=== PATIENT | male | born 1975 | race Caucasian/White ===

== ENCOUNTER 2019-08-20 06:39 | Emergency (ER) | payer MEDICAID ==
[~2019-08-20] VITALS: Ht 177.8 cm; Wt 83.0 kg
[2019-08-20] MEDS ORDERED: ondansetron/PF 4mg/2ml inj IV ONE (07:10)
[2019-08-20] MEDS ORDERED: normal saline 1000ML IV soln IVB ONE (07:10)
[2019-08-20 07:45] LABS: BASOPHILS # (AUTO) 0.1 X10'3 (0-0.2); BASOPHILS % (AUTO) 0.7 % (0-1); EOSINOPHILS # (AUTO) 0.1 X10'3 (0-0.9); EOSINOPHILS % (AUTO) 0.7 % (0-6); HEMATOCRIT 42.5 % (42.0-52.0); HEMOGLOBIN 13.8 g/dl (14.0-17.9); LYMPHOCYTES # (AUTO) 2.2 X10'3 (1.1-4.8); LYMPHOCYTES % (AUTO) 14.5 % (21-51); MEAN CORPUSCULAR HEMOGLOBIN 28.4 PG (27.0-31.0); MEAN CORPUSCULAR HGB CONC 32.4 g/dL (33.0-36.5); MEAN CORPUSCULAR VOLUME 87.8 FL (78-98); MEAN PLATELET VOLUME 10.5 FL (7.4-10.4); MONOCYTES # (AUTO) 0.9 X10'3 (0-0.9); MONOCYTES % (AUTO) 6.2 % (2-12); NEUTROPHILS # (AUTO) 11.9 X10'3 (1.8-7.7); NEUTROPHILS % (AUTO) 77.9 % (42-75); PLATELET COUNT 224 X10'3 (140-440); RED BLOOD COUNT 4.84 X10'6 (4.70-6.10); RED CELL DISTRIBUTION WIDTH 14.4 % (11.5-14.5); WHITE BLOOD COUNT 15.3 X10'3 (4.5-11.0)
[2019-08-20 07:47] LABS: ALANINE AMINOTRANSFERASE 31 U/L (12-78); ALBUMIN 4.2 G/DL (3.4-5.0); ALBUMIN/GLOBULIN RATIO 1.2 (1.1-1.5); ALKALINE PHOSPHATASE 80 IU/L (46-116); ANION GAP 8 (8-16); ASPARTATE AMINO TRANSFERASE 20 U/L (10-37); BILIRUBIN,TOTAL 0.3 MG/DL (0.1-1.0); BLOOD UREA NITROGEN 17 MG/DL (7-18); BUN/CREATININE RATIO 19.8 (5.4-32.0); CHLORIDE 106 MMOL/L (99-107); CREATININE 0.86 MG/DL (0.60-1.10); GLUCOSE 115 MG/DL (70-104); POTASSIUM 4.1 MMOL/L (3.5-5.1); SODIUM 141 MMOL/L (135-145); TOTAL PROTEIN 7.6 G/DL (6.4-8.2); eGFR > 90 ML/MIN
[2019-08-20 08:11] VITALS: BP 118/76
[2019-08-20] MEDS ORDERED: ONDA4TAB6 PO (08:16)
== END 2019-08-20 08:47 | disposition home or self-care (01) ==
LOC: ER 06:39
DX: R11.2 Nausea with vomiting, unspecified (principal); D72.829 Elevated white blood cell count, unspecified; R42 Dizziness and giddiness; R53.1 Weakness
CPT/HCPCS: 36415; 80053; 85025; 96361; 96374; 99283; J2405; J7030

== ENCOUNTER 2019-10-27 16:42 | Emergency (ER) | payer MEDICAID, OTHER ==
[~2019-10-27] VITALS: Ht 177.8 cm; Wt 86.4 kg
[~2019-10-27 16:42] MED LIST: ONDA4TAB6 PO
--- NOTE | 2019-10-27 17:12 | NUR ---
pt is 43 yo male c/o back pain after lifting ladder off of truck at work, pt is unable to sit down, amb with very slow shuffling gait to fast track, no loss of bladder/bowel, h/o chronic back pain due to degenerative disc disease, waiting to be evaluated by provider
[2019-10-27] MEDS ORDERED: ketorolac trometh inj. 60 MG/2 ML VIAL IM ONE (17:30)
[2019-10-27] MEDS ORDERED: HYDROcodone/acetaminophen 5mg/325mg tablet PO ONE (17:30)
[2019-10-27] MEDS ORDERED: cyclobenzaprine 10mg tablet PO ONE (17:30)
[2019-10-27] MEDS ORDERED: IBUP-1984 PO (17:38)
[2019-10-27] MEDS ORDERED: CYCL-1 PO (17:38)
[2019-10-27] MEDS ORDERED: HYDR-3965 PO (17:38)
[2019-10-27 18:15] VITALS: BP 139/72
== END 2019-10-27 18:00 | disposition home or self-care (01) ==
LOC: ER 16:42
DX: M54.5 Low back pain (principal); M62.838 Other muscle spasm; Z72.89 Other problems related to lifestyle; Z79.899 Other long term (current) drug therapy
CPT/HCPCS: 96372; 99283; J1885

== ENCOUNTER 2020-05-26 17:17 | Emergency (ER) | payer OTHER ==
[~2020-05-26] VITALS: Ht 180.3 cm; Wt 86.4 kg
[~2020-05-26 17:17] MED LIST changes: +CYCL-1 PO
== END 2020-05-26 17:41 | disposition left against medical advice (07) ==
LOC: ER 17:18
DX: J11.1 Influenza due to unidentified influenza virus with other respiratory manifestations (principal); Z53.21 Procedure and treatment not carried out due to patient leaving prior to being seen by health care provider

== ENCOUNTER 2020-05-29 10:44 | Emergency (ER) | payer MEDICAID, OTHER ==
[~2020-05-29] VITALS: Ht 177.8 cm; Wt 90.0 kg
[2020-05-29 10:51] VITALS: BP 173/96
== END 2020-05-29 13:07 | disposition left against medical advice (07) ==
LOC: ER 10:45
DX: R53.83 Other fatigue (principal); Z53.21 Procedure and treatment not carried out due to patient leaving prior to being seen by health care provider

== ENCOUNTER 2020-05-31 23:12 | Emergency (ER) | payer MEDICAID ==
[~2020-05-31] VITALS: Ht 177.8 cm; Wt 79.5 kg
[2020-05-31] MEDS ORDERED: metoclopramide 5 mg/ml inj IV ONE (23:35)
[2020-05-31] MEDS ORDERED: normal saline 1000ML IV soln IVB ONE ×2 (23:35)
[2020-05-31] MEDS ORDERED: diphenhydrAMINE 50 mg/ml inj IV ONE (23:35)
[2020-05-31] MEDS ORDERED: ketorolac trometh. 30mg/ml inj. IV ONE (23:35)
[2020-06-01 00:33] LABS: BASOPHILS # (AUTO) 0.1 X10'3 (0-0.2); RED BLOOD COUNT 4.68 X10'6 (4.70-6.10)
[2020-06-01 00:34] LABS: BASOPHILS % (AUTO) 0.9 % (0-1); EOSINOPHILS % (AUTO) 0.1 % (0-6); HEMATOCRIT 39.7 % (42.0-52.0); HEMOGLOBIN 13.2 g/dl (14.0-17.9); LYMPHOCYTES % (AUTO) 25.2 % (21-51); MEAN CORPUSCULAR HEMOGLOBIN 28.2 PG (27.0-31.0); MEAN CORPUSCULAR HGB CONC 33.2 g/dL (33.0-36.5); MEAN CORPUSCULAR VOLUME 84.8 FL (78-98); MEAN PLATELET VOLUME 9.9 FL (7.4-10.4); MONOCYTES % (AUTO) 11.9 % (2-12); NEUTROPHILS % (AUTO) 61.9 % (42-75); PLATELET COUNT 196 X10'3 (140-440); RED CELL DISTRIBUTION WIDTH 14.2 % (11.5-14.5); WHITE BLOOD COUNT 8.1 X10'3 (4.5-11.0)
[2020-06-01 00:41] LABS: ALANINE AMINOTRANSFERASE 29 U/L (12-78); ALBUMIN 3.8 G/DL (3.4-5.0); ALBUMIN/GLOBULIN RATIO 0.9 (1.1-1.5); ALKALINE PHOSPHATASE 89 IU/L (46-116); ANION GAP 17 (8-16); ASPARTATE AMINO TRANSFERASE 35 U/L (10-37); BILIRUBIN,TOTAL 0.3 MG/DL (0.1-1.0); BLOOD UREA NITROGEN 13 MG/DL (7-18); BUN/CREATININE RATIO 17.8 (5.4-32.0); CALCIUM 8.9 MG/DL (8.5-10.1); CHLORIDE 100 MMOL/L (99-107); CREATININE 0.73 MG/DL (0.60-1.10); GLUCOSE 134 MG/DL (70-104); POTASSIUM 3.3 MMOL/L (3.5-5.1); SODIUM 138 MMOL/L (135-145); TOTAL CARBON DIOXIDE 20.6 MMOL/L (24-32); TOTAL PROTEIN 7.9 G/DL (6.4-8.2); eGFR > 90 ML/MIN
[2020-06-01 01:08] LABS: LARGE PLATELETS FEW; PLATELET ESTIMATE NORMAL
[2020-06-01 01:09] LABS: ANISOCYTOSIS FEW; POIKILOCYTOSIS FEW; SCHISTOCYTES FEW
[2020-06-01 01:11] LABS: BURR CELLS FEW
[2020-06-01 01:53] VITALS: BP 152/81
[2020-06-01] MEDS ORDERED: ONDA4TAB12 PO (02:04)
== END 2020-06-01 03:39 | disposition home or self-care (01) ==
LOC: ER 23:13
DX: B34.9 Viral infection, unspecified (principal); R11.2 Nausea with vomiting, unspecified; R50.9 Fever, unspecified; R51.9 Headache, unspecified; R53.1 Weakness; R53.83 Other fatigue; R05 Cough; Z72.89 Other problems related to lifestyle; Z79.899 Other long term (current) drug therapy
CPT/HCPCS: 36415; 80053; 85008; 85025; 87502; 87503; 96361; 96374; 96375; 99284; J1200; J1885; J2765; J7030

== ENCOUNTER 2023-08-02 09:51 | Outpatient (CLI) | payer BC ==
[~2023-08-02 09:51] MED LIST changes: +ONDA4TAB12 PO
== END 2023-08-02 23:59 | disposition home or self-care (01) ==
LOC: RAD 09:51
PROVIDERS: ATTEND Physician Assistant
DX: M48.07 Spinal stenosis, lumbosacral region (principal); M54.50 Low back pain, unspecified
CPT/HCPCS: 72110

== ENCOUNTER 2023-11-13 11:16 | Emergency (ER) | payer BC, OTHER ==
[~2023-11-13] VITALS: Ht 177.8 cm; Wt 80.9 kg
[~2023-11-13 11:16] MED LIST changes: +ONDA-243 PO; -ONDA4TAB12 PO
[2023-11-13] MEDS ORDERED: PRED20TA PO (11:49)
[2023-11-13] MEDS: dexamethasone sod phosphate 10mg/ml inj IM STA (11:53)
[2023-11-13] MEDS: ketorolac trometh 30MG/ML vial 30 MG/ML VIAL IM ONE (11:53)
[2023-11-13 11:56] VITALS: BP 124/68; PULSE 80; RESP 18; TEMP 97.5; O2SAT 97
== END 2023-11-13 11:58 | disposition home or self-care (01) ==
LOC: ER 11:16
DX: M25.522 Pain in left elbow (principal); F12.90 Cannabis use, unspecified, uncomplicated; Z79.899 Other long term (current) drug therapy; Z79.52 Long term (current) use of systemic steroids
CPT/HCPCS: 96372; 99284; J1100; J1885

== ENCOUNTER 2024-04-02 07:50 | Emergency (ER) | payer BC, OTHER ==
[~2024-04-02] VITALS: Ht 177.8 cm; Wt 89.0 kg
[2024-04-02 07:51] VITALS: BP 129/63; PULSE 88; RESP 18; TEMP 98.3; O2SAT 98
== END 2024-04-02 14:00 | disposition left against medical advice (07) ==
LOC: ER 07:50
DX: M25.572 Pain in left ankle and joints of left foot (principal); Z53.21 Procedure and treatment not carried out due to patient leaving prior to being seen by health care provider

== ENCOUNTER 2024-04-09 09:01 | Emergency (ER) | payer BC ==
[~2024-04-09] VITALS: Ht 177.8 cm; Wt 87.5 kg
== END 2024-04-09 10:31 | disposition left against medical advice (07) ==
LOC: ER 09:02
DX: M67.472 Ganglion, left ankle and foot (principal); F17.210 Nicotine dependence, cigarettes, uncomplicated; F12.90 Cannabis use, unspecified, uncomplicated; Y90.9 Presence of alcohol in blood, level not specified
CPT/HCPCS: 99281

== ENCOUNTER 2025-03-03 09:47 | Emergency (ER) | payer BC, OTHER ==
[~2025-03-03] VITALS: Ht 177.8 cm; Wt 85.7 kg
[2025-03-03 09:58] VITALS: TEMP 97.9
[2025-03-03] MEDS: ondansetron/PF 4mg/2ml inj IV ONE (10:09)
[2025-03-03] MEDS: morphine 4 MG/ML inj SYRINge IV ONE (10:09)
--- NOTE | 2025-03-03 10:28 | Physician Documentation ---
History of Present Illness ~ Chief Complaint: Back Pain Stated Complaint: BACK PAIN Time Seen by MD: 10:28 OK to notify your PCP?: Yes Primary Medical Doctor: [facility] Source: patient, RN/, RN notes reviewed Exam Limitations: no limitations HPI Patient is a 49-year-old male with no significant medical history who came to the ED due to back pain. Patient reports that earlier today he hurt his back at work while lifting heavy equipment, pain is described as mid back, left-sided, 7/10 in intensity, nonradiating, worsened by movement. He denies any numbing or tingling sensation in his legs or feet. He has not experienced this type of pain in the past. He also denies any burning urination, frequency or dysuria. Medication Reconciliation Allergies: Coded Allergies: No Known Allergies (Unverified , 03/03/25) Scheduled Cyclobenzaprine* (Cyclobenzaprine*), 1 TAB PO HS Lidocaine (Lidocaine Pain Relief), 1 PATCH TOP DAILY Scheduled PRN Tramadol HCl (Tramadol HCl), 1 TAB PO Q12H PRN PRN for pain Discontinued Medications Cyclobenzaprine* (Cyclobenzaprine*), 1 TAB PO TID Discontinued Reason: patient no longer taking ONDANSETRON ODT 4mg tablet (Ondansetron Odt), 1 TABLET PO Q6H PRN for nausea/vomiting Discontinued Reason: patient no longer taking Ondansetron Hcl (Zofran), 1 TAB PO Q6H Discontinued Reason: patient no longer taking Past Medical History Past Medical History: No Pertinent History Past Surgical History: noncontributory Alcohol Use: Sober Drug Use: none, marijuana Lives with: Spouse Lives In: Home Occupation: employed Review of Systems All Other Systems at this time: Reviewed and Negative Physical Exam Physical Exam Vital Signs: RN Vital Signs have been reviewed: Yes, Temperature: 97.9, Source: Oral, Heart Rate: 60, Respiratory Rate: 16, BP: 170/119, Pulse Oximetry: 100, Weight: 85.700 Oxygen Flow Rate: 0 Physical Exam General: awake, alert oriented to place, time, and person HEENT: No pallor present, no icterus, moist mucous membranes Neck: No masses and tenderness Resp: Unlabored. Lungs clear to auscultation bilaterally. Chest: Normal expansion Cardiovascular: Regular Rate and rhythm, normal S1 and S2 without murmur, rub or gallop Abdomen: Soft and nontender, no organomegaly, no guarding and rigidity, bowel sounds present Neuro: No focal weakness in the upper and lower limb muscles, power of the muscles 5/5 bilateral upper and lower extremities, normal reflexes bilaterally. Cranial nerves intact Extremities: Left lumbar region is significantly tender to palpation. There is no point tenderness in spine. He is able to move both legs. No cyanosis,clubbing or edema Skin: Warm and Dry. No lesions Psych: Normal affect Progress Results/Orders Reviewed/noted all lab results: Yes Results/Orders Vital Signs 03/03/25 03/03/25 03/03/25 03/03/25 09:58 10:18 10:20 11:58 Temp 97.9 Pulse 69 60 55 Resp 18 16 16 12 B/P (MAP) 137/81 170/119 (136) 159/93 (115) Pulse Ox 100 100 98 O2 Flow Rate 0 0 0 FiO2 21 21 03/03/25 13:09 Pulse 58 Resp 18 B/P (MAP) 157/91 Pulse Ox 98 Re-Evaluation Re-Evaluation : Re-Evaluation: Improved Progress Patient was seen and examined. Patient is given reassurance treated for acute low back pain. Seen by the resident. Patient received Zofran morphine prednisone Compazine as well as lidocaine patch. Patient is given prescriptions for the same. Patient is feeling a bit better and was discharged home. Medical Decision Making Additional information obtaine: N/A Findings Symptomatology and physical examination are consistent with lumbar strain. Patient received one dose of morphine and 40 mg of prednisone. Differential Dx:Considerations: DJD, Fracture, Musculoskeletal pain, Strain Departure Disposition: 01 HOME / SELF CARE / HOMELESS Impression: Primary Impression: Low back pain Qualified Codes: M54.50 - Low back pain, unspecified Condition: Improved Referrals: NO PRIMARY CARE PROVIDER (PCP) Prescriptions Cyclobenzaprine* (Cyclobenzaprine*) 10 Mg Tablet 1 TAB PO HS for muscle spasms for 30 Days, #30 TAB 0 Refills Prov: RENZO SAMUELS MD 03/03/25 Lidocaine (Lidocaine Pain Relief) 4 % Adh..patch 1 PATCH TOP DAILY for 10 Days, #10 PATCH 0 Refills Prov: LEVI ARELLANO 03/03/25 Tramadol HCl (Tramadol HCl) 50 Mg Tablet 1 TAB PO Q12H PRN PRN for pain for 5 Days, #10 TAB Prov: LEVI ARELLANO 03/03/25 Education Educated: Patient Educated regarding: diagnosis Additional Comment Additional Comment Patient was seen and examined with the resident discussed the case agree with the management and plan. Signature Scribe Signature: No scribed Attestation: The note accurately reflects work and decisions made by me.Renzo Samuels MD 03/03/25 10:28 RENZO SAMUELS MD Mar 03, 2025 10:28 LEVI ARELLANO Mar 03, 2025 10:58
[2025-03-03] MEDS ORDERED: TRAM50TA2 PO (12:27)
[2025-03-03] MEDS ORDERED: LIDO1ADH67 TOP (12:29)
[2025-03-03] MEDS ORDERED: CYCL-1 PO (12:54)
[2025-03-03 13:09] VITALS: BP 157/91; PULSE 58; RESP 18; O2SAT 98
== END 2025-03-03 13:00 | disposition home or self-care (01) ==
LOC: ER 09:47
DX: M54.50 Low back pain, unspecified (principal); F12.90 Cannabis use, unspecified, uncomplicated; Z79.899 Other long term (current) drug therapy
CPT/HCPCS: 96374; 96375; 99284; J0780; J2270; J2405; J2919; J7512